=== PATIENT | female | born 1995 | race Caucasian/White ===

== ENCOUNTER 2018-02-06 09:15 | Observation (INO) | payer MEDICAID ==
[2018-02-06] MEDS ORDERED: PREN-96 PO (10:19)
== END 2018-02-06 10:55 | disposition home or self-care (01) | DRG 566 ==
LOC: LDRP 09:15
PROVIDERS: ADMIT Obstetrics & Gynecology; ATTEND Obstetrics & Gynecology
DX: O43.113 Circumvallate placenta, third trimester (principal); O36.5930 Maternal care for other known or suspected poor fetal growth, third trimester, not applicable or unspecified; Z3A.38 38 weeks gestation of pregnancy
CPT/HCPCS: 59025; 76805; 76818; 81002; G0378

== ENCOUNTER 2018-02-13 08:55 | Observation (INO) | payer MEDICAID ==
[~2018-02-13 08:55] MED LIST: PREN-96 PO
== END 2018-02-13 12:15 | disposition home or self-care (01) | DRG 566 ==
LOC: LDRP 08:55
PROVIDERS: ADMIT Specialist; ATTEND Specialist
DX: O43.113 Circumvallate placenta, third trimester (principal); O10.913 Unspecified pre-existing hypertension complicating pregnancy, third trimester; Z3A.39 39 weeks gestation of pregnancy
CPT/HCPCS: 59025; 76818; 81002; G0378

== ENCOUNTER 2018-02-14 14:17 | Observation (INO) | payer MEDICAID | END 2018-02-14 15:25 | disposition home or self-care (01) | DRG 566 | LOC: LDRP 14:17 | PROVIDERS: ADMIT Specialist; ATTEND Specialist | DX: O43.113 Circumvallate placenta, third trimester (principal); Z3A.39 39 weeks gestation of pregnancy | CPT/HCPCS: 59025; 76818; 81002; G0378 ==

== ENCOUNTER 2018-02-16 13:50 | Observation (INO) | payer MEDICAID | END 2018-02-16 14:50 | disposition home or self-care (01) | DRG 566 | LOC: LDRP 13:50 | PROVIDERS: ADMIT Specialist; ATTEND Specialist | DX: O62.9 Abnormality of forces of labor, unspecified (principal); Z3A.39 39 weeks gestation of pregnancy | CPT/HCPCS: 59025; 76815; 81002; G0378 ==

== ENCOUNTER 2018-02-18 10:51 | Observation (INO) | payer MEDICAID | END 2018-02-18 11:55 | disposition home or self-care (01) | DRG 566 | LOC: LDRP 10:51 | PROVIDERS: ADMIT Specialist; ATTEND Specialist | DX: O43.113 Circumvallate placenta, third trimester (principal); O48.0 Post-term pregnancy; O62.9 Abnormality of forces of labor, unspecified; Z3A.40 40 weeks gestation of pregnancy | CPT/HCPCS: 59025; 76818; 81002; G0378 ==

== ENCOUNTER 2018-07-29 23:31 | Emergency (ER) | payer MEDICAID ==
[2018-07-30 07:25] VITALS: BP 118/72
== END 2018-07-30 08:49 | disposition home or self-care (01) ==
LOC: ER 23:35
DX: S93.402A Sprain of unspecified ligament of left ankle, initial encounter (principal); S39.012A Strain of muscle, fascia and tendon of lower back, initial encounter; S50.01XA Contusion of right elbow, initial encounter; M62.838 Other muscle spasm; V43.52XA Car driver injured in collision with other type car in traffic accident, initial encounter; Y93.89 Activity, other specified; Y92.488 Other paved roadways as the place of occurrence of the external cause; Y99.8 Other external cause status
CPT/HCPCS: 70450; 72110; 72125; 73070; 73600

== ENCOUNTER 2022-06-19 10:23 | Emergency (ER) | payer BC, MEDICAID ==
[~2022-06-19] VITALS: Ht 167.6 cm; Wt 79.5 kg
[2022-06-19 10:46] LABS: Basophils # (auto) 0 10 ^3/uL (0-0.2); Basophils % (auto) 0.2 % (0.0-2.0); Eosinophils # (auto) 0.1 10 ^3/uL (0-0.8); Eosinophils % (auto) 0.8 % (0.0-7.0); Hematocrit 44.8 % (36.0-46.0); Hemoglobin 15.1 g/dL (12.2-16.2); Lymphocytes # (auto) 1.2 10 ^3/uL (0.4-5.4); Lymphocytes % (auto) 11.7 % (10.0-50.0); Mean Corpuscular Hemoglobin 31.3 pg (28.0-32.0); Mean Corpuscular Hgb Conc. 33.7 g/dL (32.0-36.0); Mean Corpuscular Volume 92.7 fL (80.0-100.0); Monocytes # (auto) 0.7 10 ^3/uL (0-1.3); Monocytes % (auto) 6.5 % (0.0-12.0); Neutrophils # (auto) 8.5 10 ^3/uL (1.6-8.6); Neutrophils % (auto) 80.8 % (37.0-80.0); Nucleated Red Blood Cells % 0.1 %; Red Blood Cells 4.83 10^6/uL (4.0-5.20); Red Cell Distribution Width 14.5 % (11.8-14.3); White Blood Cell 10.5 10^3/uL (4.4-10.8)
[2022-06-19 11:10] LABS: Albumin 4.3 g/dL (3.4-5.0); Calcium 9.3 mg/dL (8.5-10.1); Magnesium 2.5 mg/dL (1.6-2.6); Potassium 4.1 mmol/L (3.5-5.1)
[2022-06-19 11:13] LABS: Bilirubin, Total 0.7 mg/dL (0.2-1.0); Total Protein 7.9 g/dL (6.4-8.2)
[2022-06-19 12:33] LABS: Urine Bacteria FEW /hpf (None Seen); Urine Blood 3+ /uL (Negative); Urine Mucus FEW (None Seen); Urine Specific Gravity 1.017 (1.001-1.035); Urine WBC 3 /hpf (0 - 5)
[2022-06-19] MEDS ORDERED: cloNIDine HCL 0.1 MG TAB PO ONE (14:00)
[2022-06-19] MEDS ORDERED: LORazepam 0.5 MG TAB PO ONE (14:30)
[2022-06-19 14:48] VITALS: BP 136/91
== END 2022-06-19 14:51 | disposition home or self-care (01) ==
LOC: ER 10:23
DX: R07.89 Other chest pain (principal); R10.2 Pelvic and perineal pain
CPT/HCPCS: 36415; 71045; 80053; 81001; 83735; 83880; 84443; 84484; 84702; 85025; 85379; 93005

== ENCOUNTER 2023-03-07 10:01 | Observation (INO) | payer BC, MEDICAID ==
[~2023-03-07] VITALS: Ht 167.6 cm; Wt 82.4 kg
[2023-03-07 10:10] VITALS: BP 122/71; PULSE 92; RESP 16; O2SAT 97
[2023-03-07 11:38] LABS: Urine Bacteria NONE SEEN /hpf (None Seen); Urine Blood 2+ /uL (Negative); Urine Clarity Clear (Clear); Urine Color Yellow (Yellow); Urine Mucus FEW (None Seen); Urine Protein, UAD TRACE (Negative); Urine Specific Gravity 1.022 (1.001-1.035); Urine Urobilinogen Normal (Negative); Urine WBC 5 /hpf (0 - 5)
== END 2023-03-07 12:59 | disposition home or self-care (01) ==
LOC: ER 10:01 → LDRP 10:21 → ER 10:28 → LDRP 10:28 → UNDOADMOB 10:35 → UNDODISOB 12:59
PROVIDERS: ADMIT Obstetrics & Gynecology; ATTEND Obstetrics & Gynecology
DX: O46.92 Antepartum hemorrhage, unspecified, second trimester (principal); Z3A.22 22 weeks gestation of pregnancy
CPT/HCPCS: 59025; 76805; 81001; 81002; 94760; 99284; G0378

== ENCOUNTER 2023-07-09 04:42 | Observation (INO) | payer BC, MEDICAID | END 2023-07-09 10:59 | disposition home or self-care (01) | LOC: LDRP 08:00 | PROVIDERS: ADMIT Obstetrics & Gynecology; ATTEND Obstetrics & Gynecology | DX: O48.0 Post-term pregnancy (principal); O60.03 Preterm labor without delivery, third trimester; Z3A.40 40 weeks gestation of pregnancy | CPT/HCPCS: 59025; 76818; 81002; G0378 ==

== ENCOUNTER 2023-07-11 08:25 | Inpatient (IN) | payer BC, MEDICAID ==
[~2023-07-11] VITALS: Ht 167.6 cm; Wt 89.4 kg
[2023-07-11] MEDS ORDERED: BUTORPHANOL TARTRATE 2 MG/1 ML VIAL IV PRN ×2 (14:30)
[2023-07-11] MEDS ORDERED: LACT. RINGERS/OXYTOCIN 20UNITS 1,000 ML IV SCH (14:30)
[2023-07-11] MEDS ORDERED: TERBUTALINE SULFATE 1 MG/ML 1ML VIAL SC PRN (14:30)
[2023-07-11] MEDS ORDERED: LIDOCAINE 2%HCL (LOCAL ANESTH.) INJ 20ML MDV IJ PRN (14:30)
[2023-07-11] MEDS ORDERED: LACT. RINGERS/OXYTOCIN 20UNITS 500 ML IV ONE (15:00)
[2023-07-11 15:52] LABS: Basophils # (auto) 0 10 ^3/uL (0-0.2); Basophils % (auto) 0.2 % (0.0-2.0); Eosinophils # (auto) 0 10 ^3/uL (0-0.8); Eosinophils % (auto) 0.4 % (0.0-7.0); Hematocrit 33.7 % (36.0-46.0); Hemoglobin 11.5 g/dL (12.2-16.2); Lymphocytes # (auto) 1.1 10 ^3/uL (0.4-5.4); Lymphocytes % (auto) 15.1 % (10.0-50.0); Mean Corpuscular Hemoglobin 31.2 pg (28.0-32.0); Mean Corpuscular Volume 91.8 fL (80.0-100.0); Monocytes # (auto) 0.5 10 ^3/uL (0-1.3); Monocytes % (auto) 7.3 % (0.0-12.0); Neutrophils # (auto) 5.4 10 ^3/uL (1.6-8.6); Red Blood Cells 3.67 10^6/uL (4.0-5.20); Red Cell Distribution Width 13.7 % (11.8-14.3); White Blood Cell 7.1 10^3/uL (4.4-10.8)
[2023-07-11 16:10] LABS: Alanine Aminotransferase 16 U/L (7-40); Albumin 3.4 g/dL (3.2-4.8); Alkaline Phosphatase 201 U/L (46-116); Anion Gap 8 (5-15); Aspartate Aminotransferase 15 U/L (13-40); BUN/Creatinine Ratio 10.3 (10.0-20.0); Blood Urea Nitrogen 6 mg/dL (9-23); Calcium 9.4 mg/dL (8.7-10.4); Carbon Dioxide 21 mmol/L (20-30); Chloride 106 mmol/L (98-107); Glucose 77 mg/dL (74-106); INR 0.97 (0.9-1.15); Partial Thromboplastin Time 26.2 SEC (24.5-34.5); Potassium 4.1 mmol/L (3.5-5.1); Prothrombin Time 10.3 sec (9.3-11.8); Sodium 135 mmol/L (136-145)
[2023-07-11 16:11] LABS: Bilirubin, Total 0.4 mg/dL (0.2-1.0); Total Protein 5.9 g/dL (5.7-8.2)
[2023-07-11] MEDS: PENICILLIN G POT 5MIL/D5 50ML 50 ML IV ONE (16:58)
[2023-07-11] MEDS: LACTATED RINGER'S 1,000 ML IV SCH (17:02)
[2023-07-11] MEDS: LACT. RINGERS/OXYTOCIN 20UNITS 500 ML IV ONE (18:45)
[2023-07-11 19:03] LABS: Urine Bacteria None Seen /hpf (None Seen)
[2023-07-11] MEDS: PENICILLIN G POTASSIUM 2,500,000 UNITS in D5W 5% 50 ML IV SCH (19:30)
[2023-07-11 19:35] LABS: Urine Blood 3+ /uL (Negative); Urine Clarity Turbid (Clear); Urine Color Colorless (Yellow); Urine Protein, UAD Negative (Negative); Urine Urobilinogen Normal (Negative); Urine WBC 14 /hpf (0 - 5); Urine pH 6.5 (5.0-9.0)
[2023-07-11 19:37] LABS: Amphetamine Screen, Urine Neg (NEGATIVE); Barbiturate Scree,Urine Neg (NEGATIVE); Benzodiazephine Screen, Urine Neg (NEGATIVE); Cocaine Screen, Urine Neg (NEGATIVE); Opiate Scree,Urine Neg (NEGATIVE)
[2023-07-11 19:38] LABS: Cannabinoid Screen, Urine Neg (NEGATIVE); Phencyclidine Screen, Urine Neg (NEGATIVE)
[2023-07-11] MEDS: ePHEDrine SULFATE 50 MG/ML AMP IV ONE (21:15)
[2023-07-11] MEDS: DERMOPLAST 60ML BOTTLE TOP PRN (21:36)
[2023-07-11] MEDS: PHISODERM TOP SOLN 240ML BTL TOP PRN (21:36)
[2023-07-11] MEDS: WITCH HAZEL-GLYCERIN PAD TOP PRN (21:36)
[2023-07-12] MEDS ORDERED: miSOPROStol 100 mcg TAB PR PRN (02:00)
[2023-07-12] MEDS: TRANEXAMIC ACID 1,000 MG in SODIUM CHL 0.9% 100 ML IV ONE (02:00)
[2023-07-12] MEDS ORDERED: miSOPROStol 100 mcg TAB SL PRN (02:00)
[2023-07-12] MEDS ORDERED: METHYLERGONOVINE MALEATE 0.2 MG/ML AMP IM PRN (02:00)
[2023-07-12] MEDS ORDERED: CARBOPROST TROMETHAMINE 250 MCG/1ML VIAL IM PRN (02:00)
[2023-07-12] MEDS: LACT. RINGERS/OXYTOCIN 20UNITS 1,000 ML IV SCH (03:30)
[2023-07-12] MEDS: ONDANSETRON HCL 4 MG/2 ML VIAL ONE (05:26)
[2023-07-12] MEDS: LACT. RINGERS/OXYTOCIN 20UNITS 500 ML IV ONE ×2 (05:52→05:55)
[2023-07-12] MEDS: ROPIVACAINE HCL 200 ML ONE (05:56)
[2023-07-12 07:07] LABS: RPR Non Reactive (Non Reactive)
[2023-07-12] MEDS ORDERED: DIPHENOXYLATE W/ATROPINE 2.5 MG TAB PO SCH (10:00)
[2023-07-12] MEDS ORDERED: ONDANSETRON ODT 4 MG TAB PO PRN (10:30)
[2023-07-12] MEDS ORDERED: ACETAMINOPHEN 325 MG TAB PO PRN (10:30)
[2023-07-12 11:30] VITALS: BP 123/74; PULSE 74; RESP 18; TEMP 97.9; O2SAT 98
[2023-07-12] MEDS: IBUPROFEN 600 MG TAB PO PRN (11:57)
[2023-07-12 15:30] VITALS: BP 134/75; PULSE 76; RESP 18; TEMP 98.2; O2SAT 98
[2023-07-12 18:30] VITALS: BP 127/77; PULSE 82; RESP 18; TEMP 97.9; O2SAT 95
[2023-07-12] MEDS ORDERED: IBU600T PO (21:09)
[2023-07-12] MEDS ORDERED: DOCU-94 PO (21:09)
[2023-07-12] MEDS: DOCUSATE SOD 100 MG CAP PO ONE (22:00)
[2023-07-12 23:06] VITALS: BP 120/77; PULSE 78; RESP 18; TEMP 97.7; O2SAT 96
[2023-07-13 03:00] VITALS: BP 128/77; PULSE 58; RESP 14; TEMP 97.9; O2SAT 95
[2023-07-13 05:14] LABS: Basophils # (auto) 0 10 ^3/uL (0-0.2); Basophils % (auto) 0.3 % (0.0-2.0); Eosinophils # (auto) 0.1 10 ^3/uL (0-0.8); Eosinophils % (auto) 0.7 % (0.0-7.0); Hematocrit 32.7 % (36.0-46.0); Lymphocytes # (auto) 1.8 10 ^3/uL (0.4-5.4); Lymphocytes % (auto) 16.9 % (10.0-50.0); Mean Corpuscular Hemoglobin 31.3 pg (28.0-32.0); Mean Corpuscular Hgb Conc. 33.5 g/dL (32.0-36.0); Mean Corpuscular Volume 93.6 fL (80.0-100.0); Monocytes # (auto) 0.8 10 ^3/uL (0-1.3); Monocytes % (auto) 7.2 % (0.0-12.0); Neutrophils # (auto) 7.9 10 ^3/uL (1.6-8.6); Neutrophils % (auto) 74.9 % (37.0-80.0); Nucleated Red Blood Cells % 0.1 %; Red Blood Cells 3.49 10^6/uL (4.0-5.20); Red Cell Distribution Width 13.9 % (11.8-14.3); White Blood Cell 10.6 10^3/uL (4.4-10.8)
[2023-07-13 07:00] VITALS: BP 135/88; PULSE 72; RESP 16; TEMP 97.7; O2SAT 96
[2023-07-13 18:06] LABS: Treponema pallidum Ab (FTA-Ab) Non Reactive (Non Reactive)
== END 2023-07-13 12:00 | disposition home or self-care (01) | DRG 807 ==
LOC: UNDOADMOB 13:05 → LDRP 13:05 → OBSVTOIN 14:33 → LDRP 18:30
PROVIDERS: ADMIT Obstetrics & Gynecology; ATTEND Obstetrics & Gynecology
PROC: 10E0XZZ Delivery of Products of Conception, External Approach (ICD-10-PCS; principal; 2023-07-12)
PROC: 0W8NXZZ Division of Female Perineum, External Approach (ICD-10-PCS; 2023-07-12)
PROC: 3E0R3BZ Introduction of Anesthetic Agent into Spinal Canal, Percutaneous Approach (ICD-10-PCS; 2023-07-12)
PROC: 00HU33Z Insertion of Infusion Device into Spinal Canal, Percutaneous Approach (ICD-10-PCS; 2023-07-12)
DX: O48.0 Post-term pregnancy (principal); Z37.0 Single live birth; O99.824 Streptococcus B carrier state complicating childbirth; Z3A.40 40 weeks gestation of pregnancy
CPT/HCPCS: 36415; 59025; 59409; 62282; 76818; 80053; 80307; 81001; 81002; 85025; 85610; 85730; 86592; 86850; 86900; 86901; 94760; 96360; 96361; 96365; 96366; 96374; G0378; J2405; J2540; J2590; J7060

== ENCOUNTER 2024-12-01 08:59 | Observation (INO) | payer BC, MEDICAID ==
[~2024-12-01] VITALS: Ht 170.2 cm; Wt 86.2 kg
[~2024-12-01 08:59] MED LIST changes: +DOCU-94 PO; +IBU600T PO
[2024-12-01] MEDS: BETAMETHASONE ACET (30mg/5ml) 5ml Vial 6mg/ml IM ONE (11:06)
[2024-12-01] MEDS: LACTATED RINGER'S 1,000 ML IV ONE (11:07)
--- NOTE | 2024-12-01 12:18 | DVH ---
EXAM: US OB ULTRASOUND COMP GTR 14 WKS HISTORY: Vaginal bleeding COMPARISON: US OB ULTRASOUND COMP GTR 14 WKS on DOS: 03/07/23 TECHNIQUE: Transabdominal and endovaginal real time romero scale, color, and doppler evaluation. Perman ent images are maintained in the patient record. FINDINGS: GA by previous US/LMP: 35 weeks, 6 days ROSMERY by previous US/LMP: 12/30/24 US GESTATIONAL AGE: 37 weeks, 2 days US ROSMERY: 12/20/24 ESTIMATED WEIGHT: 2898 g. 6 lb, 6 oz HEART RATE: 125 bpm BPD: 9.72 cm, 39 weeks 5 days, 97% HC: 33.9 cm, 39 weeks 0 days, 88.3% AC: 32 cm, 35 weeks 6 days, 60.9% FL: 6.73 cm, 34 weeks 4days, 15.9% HC/AC: 1.06 ANATOMY: Normal head, 4 chamber heart, face, spine, stomach, kidneys, cord insertion, bladder, extrem ities POSITION: Cephalic PLACENTA: Anterior GRADE: 2 JANINE: 14.4 cm IMPRESSION: 1. Single viable gestation with normal cardiac heart rate.
--- NOTE | 2024-12-02 07:34 | DVHDS2 ---
Physician Discharge Progress N Final Diagnosis: IUP AT 35WKS PTL Operations or Procedures: Operations or Procedures NST REACTIVE REVIWED,SONO Condition on Discharge: Good Disposition: Home Discharge Instructions: Diet: Regular Activity: No Restrictions, As Tolerated Medications: REFUSES ALL TOCOLYTIC AND PROCARDIA TO GO HOME ON Follow Up Care: Specialist: 2D Discharge Statement: "Patient was advised to return to the ER or call 911 if any headaches, dizziness, shortness of breath, chest pain, abdominal pain, bleeding, fevers, or worsening of medical condition. Patient was counseled about treatment plan, medications, possible side effects, patientverbalized understanding. All questions were answered to the best of my ability. This discharge took greater then 30 minutes in planning, reviewing documentation, counseling the patient, and discussing with other team members." Visit Coding OBGYN Date of Service: Dec 01, 2024 Billing Provider: MARISSA JUDGE DO ON CALL PHARMACY TECHNICIAN Common Visit Codes: [id number] INP/OBS CARE (HIGH) ON CALL PHARMACY TECHNICIAN Procedure Codes: [id number] NON-STRESS TEST MARISSA JUDGE DO Dec 02, 2024 07:34
== END 2024-12-01 11:37 | disposition home or self-care (01) ==
LOC: LDRP 08:59
PROVIDERS: ADMIT Obstetrics & Gynecology; ATTEND Obstetrics & Gynecology
DX: O60.03 Preterm labor without delivery, third trimester (principal); Z3A.35 35 weeks gestation of pregnancy; Z79.899 Other long term (current) drug therapy; Z98.890 Other specified postprocedural states
CPT/HCPCS: 59025; 76805; 81002; 96360; 96361; 96372; G0378; J0702

== ENCOUNTER 2024-12-02 10:59 | Observation (INO) | payer BC, MEDICAID ==
[2024-12-02] MEDS: BETAMETHASONE ACET (30mg/5ml) 5ml Vial 6mg/ml IM ONE (12:24)
[2024-12-02 13:12] LABS: Urine Protein, UAD Negative (Negative)
--- NOTE | 2024-12-03 12:28 | DVHDS2 ---
Physician Discharge Progress N Final Diagnosis: ptl 36wks Operations or Procedures: Operations or Procedures nst reactive reviwed,sono Condition on Discharge: Good Disposition: Home Discharge Instructions: Diet: Regular Activity: No Restrictions, As Tolerated Medications: na Follow Up Care: Specialist: 1d Discharge Statement: "Patient was advised to return to the ER or call 911 if any headaches, dizziness, shortness of breath, chest pain, abdominal pain, bleeding, fevers, or worsening of medical condition. Patient was counseled about treatment plan, medications, possible side effects, patientverbalized understanding. All questions were answered to the best of my ability. This discharge took greater then 30 minutes in planning, reviewing documentat ion, counseling the patient, and discussing with other team members." Visit Coding OBGYN Date of Service: Dec 02, 2024 Billing Provider: MARISSA JUDGE DO HALAL BUTCHER Common Visit Codes: [id number] OBS CARE (HIGH) HALAL BUTCHER Procedure Codes: 75251-03- NON-STRESS TEST MARISSA JUDGE DO Dec 03, 2024 12:28
[2024-12-05 03:08] LABS: Chlamydia Trachomatis, NAA Negative (Negative); Neisseria gonorrhoeae, NAA Negative (Negative)
== END 2024-12-02 12:48 | disposition home or self-care (01) ==
LOC: LDRP 11:10
PROVIDERS: ADMIT Obstetrics & Gynecology; ATTEND Obstetrics & Gynecology
DX: O60.03 Preterm labor without delivery, third trimester (principal); R53.1 Weakness; Z3A.36 36 weeks gestation of pregnancy; Z98.890 Other specified postprocedural states; Z79.899 Other long term (current) drug therapy
CPT/HCPCS: 36415; 59025; 81001; 81002; 86703; 86780; 87491; 87591; 94760; 96372; G0378

== ENCOUNTER 2024-12-15 15:19 | Inpatient (IN) | payer BC, MEDICAID ==
[~2024-12-15] VITALS: Ht 167.6 cm; Wt 86.2 kg
[2024-12-15] MEDS ORDERED: DERMOPLAST 60ML BOTTLE TOP PRN (16:00)
[2024-12-15] MEDS ORDERED: PENICILLIN G POT 5MIL/D5 50ML 50 ML IV ONE (16:00)
[2024-12-15] MEDS ORDERED: NALBUPHINE HCL 10 MG/1ml INJECTION IV PRN (16:00)
[2024-12-15 16:41] LABS: Hematocrit 34.1 % (36.0-46.0); Hemoglobin 11.7 g/dL (12.2-16.2); Mean Corpuscular Hemoglobin 30.3 pg (28.0-32.0); Mean Corpuscular Volume 88.7 fL (80.0-100.0); Nucleated Red Blood Cells % 0.1 %
[2024-12-15 16:58] LABS: Alanine Aminotransferase 21 U/L (7-40); Albumin 3.6 g/dL (3.2-4.8); Anion Gap 7 (5-15); BUN/Creatinine Ratio 9.0 (10.0-20.0); Bilirubin, Total 0.4 mg/dL (0.2-1.0); Calcium 8.8 mg/dL (8.7-10.4); Carbon Dioxide 21 mmol/L (20-31); Glucose 89 mg/dL (74-106); INR 0.96 (0.9-1.15); Partial Thromboplastin Time 24.8 SEC (24.5-34.5); Potassium 4.0 mmol/L (3.5-5.1); Prothrombin Time 10.2 sec (9.3-11.8); Sodium 140 mmol/L (136-145); Total Protein 6.2 g/dL (5.7-8.2)
[2024-12-15 17:07] LABS: Alkaline Phosphatase 288 U/L (46-116); Blood Urea Nitrogen 7 mg/dL (9-23); Chloride 112 mmol/L (98-107)
[2024-12-15 17:10] LABS: Urine Protein, UAD 1+ (Negative)
[2024-12-15 17:13] LABS: Amphetamine Screen, Urine Neg (NEGATIVE); Barbiturate Scree,Urine Neg (NEGATIVE); Benzodiazephine Screen, Urine Neg (NEGATIVE); Cannabinoid Screen, Urine Neg (NEGATIVE); Cocaine Screen, Urine Neg (NEGATIVE); Opiate Scree,Urine Neg (NEGATIVE); Phencyclidine Screen, Urine Neg (NEGATIVE)
[2024-12-15 17:23] LABS: Vaginal Bacteria Few; Vaginal Clue Cells None Seen; Vaginal Epithelial Cells Few; Vaginal Trichomonas Not Present
[2024-12-15] MEDS ORDERED: LACT. RINGERS/OXYTOCIN 20UNITS 500 ML IV ONE ×2 (18:00→18:30)
--- NOTE | 2024-12-15 18:06 | DVHHP ---
ADMIT DATE: 12/15/2024 CHIEF COMPLAINT: Spontaneous rupture of membranes. HISTORY OF PRESENT ILLNESS: The patient is a 29-year-old 4, para 2 with EDC on 12/30. The patient has gestational age of 37 weeks admitted for spontaneous rupture of membranes. The patient was noted to be 4 cm, 60%, -2, clear fluid. PAST MEDICAL HISTORY: None. PAST SURGICAL HISTORY: None. SOCIAL HISTORY: None. FAMILY HISTORY: None. OBSTETRIC AND GYNECOLOGIC HISTORY: Two normal vaginal deliveries. ALLERGIES: No known drug allergies. REVIEW OF SYSTEMS: Consistent with HPI. PHYSICAL EXAMINATION: VITAL SIGNS: Stable, afebrile. HEENT: Within normal limits. CARDIOVASCULAR: Regular rate and rhythm. LUNGS: Clear to auscultation. BREASTS: Symmetrical, no masses. ABDOMEN: Gravid. Positive heart. PELVIC: 4 cm, 805, -2. Clear fluid. EXTREMITIES: No clubbing, cyanosis or edema. IMPRESSION: Intrauterine at 37 weeks with spontaneous rupture of membranes. PLAN: Start Pitocin. The patient desires to have epidurals. Informed consent obtained. DO CANDACE Mccormack/CARMEN TID: [id number] RECEIPT: [id number]
[2024-12-15] MEDS: LACT. RINGERS/OXYTOCIN 20UNITS 1,000 ML IV SCH (19:19)
[2024-12-15] MEDS: PHISODERM TOP SOLN 240ML BTL TOP PRN (19:20)
[2024-12-15] MEDS: WITCH HAZEL-GLYCERIN PAD TOP PRN (19:21)
[2024-12-15] MEDS: DERMOPLAST 60ML BOTTLE TOP PRN (19:40)
[2024-12-15] MEDS ORDERED: ONDANSETRON HCL 4 MG/2 ML VIAL IV PRN (19:45)
[2024-12-15] MEDS ORDERED: PENICILLIN G POTASSIUM 2,500,000 UNITS in D5W 5% 50 ML IV SCH (20:00)
[2024-12-15] MEDS: ceFAZolin 2 GM/D5W50ml 50 ML IV ONE (20:02)
[2024-12-16] VITALS (14 sets, daily range): BP systolic 99–136; BP diastolic 58–80; PULSE 71–88; RESP 16–18; TEMP 97.8–98.5; O2SAT 95–98
[2024-12-16] MEDS: MAGNESIUM SULFATE 100 ML IV ONE ×2 (00:41→01:13)
[2024-12-16] MEDS ORDERED: NALOXONE HCL 0.4 MG/ML VIAL IV ONE (01:00)
[2024-12-16] MEDS ORDERED: LACTATED RINGER'S 500 ML IV ONE (01:00)
[2024-12-16] MEDS ORDERED: LIDOCAINE HCL 2 %PF INJ 10ML AMP IJ ONE (01:00)
[2024-12-16] MEDS ORDERED: ROPIVACAINE HCL 0 ML ONE (01:04)
--- NOTE | 2024-12-16 01:10 | DVHPN2 ---
CNM Labor Progress Note Date and Time Seen Date Seen: Dec 16, 2024 Time Seen: 00:40 Subjective Patient reports: Feels worse Subjective Comment 12/16/2024 @ 0045 Subjective 29 y/o (2,0,1,0) @ 38w0d EDC 12/30/2024 LMP 03/25/2024 Spontaneous rupture of membranes 12/15/2024 @ 1100 Currently elevated blood pressures 162/102 172/105 Given Hydralazine 0.5 mg X1 dose Magnesium 4 gm loading dose Requesting epidural and in pain with contractions Anesthesiologist requested to bedside 100 mcg Fentanyl X 1 dose given for pain management until epidural placed Current SVE /0 Reporting pain 11/[address] Pruett labs Blood Type O positive GBS : Negative RPR: Non Reactive Rubella Immune Normal Course Past History OB: G#1 G#2 G#3 Neurophysiologist PMH : Denies PSH: Denies Medications: PNV, Social Hist: Requested STI panel , reported FOB is having extra relationships Abdomen: Gravid non- tender, Cephalic presentation by Yannick maneuvers EFW SVE Monitoring Method Monitoring Method: External Heart Rate Heart Rate Baseline: 145 Heart Rate Variability: Moderate Presence of FHR Accelerations: Yes Presence of FHR Decelerations: No Are all 5 Components of the FH: Yes Contractions Contractions Frequency: Other Duration of Contraction: 60 Contractions Intensity: Moderate Contractions Resting Tone: Relaxed Membranes Membranes: Ruptured Amniotic Fluid Color: Clear Vaginal Exam Vag Exam Deferred: Yes Vaginal Exam Dilation: 5 Vaginal Exam Effacement: 90 Vaginal Exam Station: 0 Vaginal Exam Presentation: VTX Vaginal Exam Show: Small Medications Medications - Pitocin: Yes Medication - Epidural: Yes Medication - Other Magnesium 4 gm loading dose Magnesium 2 gm maintenance Fentanyl 100 mcg IVP Lab Results Lab Results Current Medications Medications (Trade) Dose Ordered Sig/Sabas Start Time Stop Time Status Last Admin Dose Admin Lactated Ringer's 1,000 ml @ 125 mls/hr Q8H 12/15/24 16:00 Nalbuphine HCl (Nubain) 10 mg Q4HP PRN 12/15/24 16:00 Penicillin G Potassium 50 ml @ 100 mls/hr ONCE ONCE 12/15/24 16:00 12/15/24 16:23 DC Penicillin G Potassium [id number] units/Dextrose 50 ml @ 100 mls/hr Q4H 12/15/24 20:00 12/15/24 16:23 DC Makayla Ward (Tucks) 1 pad PRN PRN 12/15/24 16:00 12/15/24 19:21 1 PAD Sodium Lauryl Sulfate (Phisoderm) 240 ml PRN PRN 12/15/24 16:00 12/15/24 19:20 240 ML Benzocaine (Dermoplast) 1 applic PRN PRN 12/15/24 16:00 12/15/24 16:23 DC Lidocaine HCl (Xylocaine) 20 ml ONCE PRN 12/15/24 16:00 Oxytocin 500 ml @ 999 mls/hr Q31M ONCE 12/15/24 16:15 12/15/24 16:45 DC Oxytocin 500 ml @ 125 mls/hr Q4H ONCE 12/15/24 16:45 12/15/24 20:44 DC Oxytocin 1,000 ml @ 6 ml/hr Q24H 12/15/24 18:00 12/15/24 19:19 6 ML/HR Oxytocin 500 ml @ 999 mls/hr Q31M ONCE 12/15/24 18:00 12/15/24 18:30 DC Oxytocin 500 ml @ 125 mls/hr Q4H ONCE 12/15/24 18:30 12/15/24 18:47 DC Cefazolin Sodium/ Dextrose 50 ml @ 50 mls/hr ONCE ONCE 12/15/24 20:00 12/15/24 20:59 DC 12/15/24 20:02 50 MLS/HR Cefazolin Sodium 50 ml @ 100 mls/hr Q8HR 12/16/24 04:00 Benzocaine (Dermoplast) 1 applic PRN PRN 12/15/24 19:15 12/15/24 19:40 1 APPLIC Ondansetron HCl (Zofran) 4 mg Q4HPRN PRN 12/15/24 19:45 Laboratory Tests Test 12/15/24 16:13 12/15/24 15:35 12/15/24 15:30 Range/Units White Blood Count 6.9 4.4-10.8 10^3/uL Red Blood Count 3.85 L 4.0-5.20 10^6/uL Hemoglobin 11.7 L 12.2-16.2 g/dL Hematocrit 34.1 L 36.0-46.0 % Mean Corpuscular Volume 88.7 80.0-100.0 fL Mean Corpuscular Hemoglobin 30.3 28.0-32.0 pg Mean Corpuscular Hemoglobin Concent 34.2 32.0-36.0 g/dL Red Cell Distribution Width 14.2 11.8-14.3 % Platelet Count 122 L 140-450 10^3/uL Mean Platelet Volume 11.3 H 6.9-10.8 fL Neutrophils (%) (Auto) 76.6 37.0-80.0 % Lymphocytes (%) (Auto) 16.3 10.0-50.0 % Monocytes (%) (Auto) 6.7 0.0-12.0 % Eosinophils (%) (Auto) 0.1 0.0-7.0 % Basophils (%) (Auto) 0.3 0.0-2.0 % Neutrophils # (Auto) 5.3 1.6-8.6 10 ^3/uL Lymphocytes # (Auto) 1.1 0.4-5.4 10 ^3/uL Monocytes # (Auto) 0.5 0-1.3 10 ^3/uL Eosinophils # (Auto) 0 0-0.8 10 ^3/uL Basophils # (Auto) 0 0-0.2 10 ^3/uL Nucleated Red Blood Cells 0.1 % Prothrombin Time 10.2 9.3-11.8 sec Prothrombin Time INR 0.96 0.9-1.15 Activated Partial Thromboplast Time 24.8 24.5-34.5 SEC Sodium Level 140 136-145 mmol/L Potassium Level 4.0 3.5-5.1 mmol/L Chloride Level 112 H 98-107 mmol/L Carbon Dioxide Level 21 20-31 mmol/L Anion Gap 7 5-15 Blood Urea Nitrogen 7 L 9-23 mg/dL Creatinine 0.78 0.550-1.02 mg/dL Glomerular Filtration Rate Calc 106 >90 mL/min BUN/Creatinine Ratio 9.0 L 10.0-20.0 Serum Glucose 89 74-106 mg/dL Uric Acid 6.1 3.1-7.8 mg/dL Calcium Level 8.8 8.7-10.4 mg/dL Total Bilirubin 0.4 0.2-1.0 mg/dL Aspartate Amino Transferase (AST) 20 13-40 U/L Alanine Aminotransferase (ALT) 21 7-40 U/L Alkaline Phosphatase 288 H 46-116 U/L Total Protein 6.2 5.7-8.2 g/dL Albumin 3.6 3.2-4.8 g/dL Treponema pallidum Antibody Non-reactive Negative Hepatitis C Antibody Negative Negative Vaginal WBC (Wet Prep) Few Vaginal RBC (Wet Prep) Few Vaginal Epithelial Cells (Wet Prep) Few Vaginal Bacteria (Wet Prep) Few Vaginal Trichomonas (Wet Prep) Not present Vaginal Yeast (Wet Prep) None seen Vaginal Clue Cells (Wet Prep) None seen Urine Color Yellow Yellow Urine Clarity Turbid H Clear Urine pH 6.0 5.0-9.0 Urine Specific [place] 1.032 1.001-1.035 Urine Protein 1+ H Negative Urine Ketones 1+ H Negative Urine Blood 1+ H Negative /uL Urine Nitrite Negative Negative Urine Bilirubin Negative Negative Urine Urobilinogen 2 H Negative mg/dL Urine Leukocyte Esterase 2+ Negative /uL Urine RBC 5 0 - 4 /hpf Urine Microscopic WBC 28 H 0-5 /HPF Urine Squamous Epithelial Cells Mod <5 /hpf Urine Bacteria None seen None Seen /hpf Urine Mucus Few None Seen Urine Glucose Normal Normal mg/dL Urine Opiates Screen Neg NEGATIVE Urine Fentanyl Screen Neg NEGATIVE Urine Barbiturates Screen Neg NEGATIVE Urine Phencyclidine Screen Neg NEGATIVE Urine Amphetamines Screen Neg NEGATIVE Urine Benzodiazepines Screen Neg NEGATIVE Urine Cocaine Screen Neg NEGATIVE Urine Cannabinoids Screen Neg NEGATIVE Consulting with Regarding Spoke with Dr Pruett and reported findings Aware hager start patient on magnesium therapy Assessment Assessment ASSESSMENT: (2,0,1,2) 38w0d Start magnesium therapy for elevated pressures Received Hydralazine 0.25 X1 dose for BP 170/105 Epidural for pain Pitocin augmentation Received Ancef 2 gm IVPB X1 dose Plan Plan PLAN: Plan of care discussed with Patient and partner Process, Risks, benefits, of available management options discussed, Patient agrees to magnesium/ fentanyl/ Epidural Informed Consent obtained Consent for possible blood transfusion obtained. All questions answered. Anticipate Plan discussed with: Patient, Other Visit Coding OBGYN Date of Service: Dec 16, 2024 Billing Provider: WINSTON CEDILLO CNM DETACHER Common Visit Codes: [id number] INP/OBS CARE (HIGH) WINSTON CEDILLOov 2024 01:10
[2024-12-16] MEDS: MAGNESIUM SULFATE 40MG/ML 1,000 ML IV SCH (01:16)
--- NOTE | 2024-12-16 02:10 | LDN2 ---
Labor and Delivery Note Date 12/16/24 Age 29 4 Para 3 EDC 12/30/2024 Diagnosis Note- Called to bedside for standby delivery Unable to receive epidural SVE C/C/+3 with noted At 0127 this 29yo now delivered a viable Female w/ APGARS 8/9. DAKOTAH with tight Nuchal x1 with cord reduced before . placed skin to skin on pts chest. Cord clamped and cut after 3 min, pulsation ceased. Cord blood sent. Intact 3-vessel cord placenta Delivered spontaneously, Oscar. Pitocin IV bolus started. Placenta sent to pathology. Patient delivered without anesthesia Fentanyl 100 mcg given IVPB Cervix/vagina inspected (intact) Perineal Intact Vaginal sweep done and 100 ml of clots removed Fundus at U, firm, midline, and light lochia. QBL 400ml. VSS. Count correct x2. Magnesium therapy 12-24 hours for elevated blood pressures. Patient to care and baby to couplet care, both stable. Rectal mucosa and sphincter intact. 800 mcg Misoprostol given rectally Rectal exam performed, WNL, not involved. Placenta inspected intact. Vaginal Delivery: VTX Vacuum Assisted: No Placenta: Spontaneous Sex: Female Nuchal Cord Transected: Yes Amniotic Fluid: Clear Episiotomy: No Extension: No EBL 400 ML Labs Chemistry Test 12/15/24 16:13 Albumin 3.6 g/dL (3.2-4.8) Calcium Level 8.8 mg/dL (8.7-10.4) Total Protein 6.2 g/dL (5.7-8.2) Coagulation Test 12/15/24 16:13 Prothrombin Time 10.2 sec (9.3-11.8) Prothrombin Time INR 0.96 (0.9-1.15) Activated Partial Thromboplast Time 24.8 SEC (24.5-34.5) LFT Test 12/15/24 16:13 Alanine Aminotransferase (ALT) 21 U/L (7-40) Alkaline Phosphatase 288 U/L (46-116) H Aspartate Amino Transferase (AST) 20 U/L (13-40) Total Bilirubin 0.4 mg/dL (0.2-1.0) Complications Elevated Blood Pressures Magnesium Therapy Conditions Stable with infant Visit Coding OBGYN Date of Service: Dec 16, 2024 Billing Provider: WINSTON CEDILLO CNM MEDICAL ASSISTANT Common Visit Codes: [id number] OBS CARE (MOD), [id number] OBS CARE (HIGH) WINSTON CEDILLOMNov 2024 02:10
[2024-12-16] MEDS: LIDOCAINE 2%HCL (LOCAL ANESTH.) INJ 20ML MDV IJ PRN (02:54)
[2024-12-16] MEDS ORDERED: LORazepam 2MG/ML-1ML VIAL IV ONE (03:00)
[2024-12-16] MEDS: fentaNYL CITRATE 100 MCG/2 ML VL IV ONE (03:01)
[2024-12-16] MEDS: LACT. RINGERS/OXYTOCIN 20UNITS 500 ML IV ONE ×2 (03:09→03:11)
[2024-12-16] MEDS: LACTATED RINGER'S 1,000 ML IV SCH (03:14)
[2024-12-16] MEDS ORDERED: IBUPROFEN 600 MG TAB PO PRN (03:15)
[2024-12-16] MEDS ORDERED: ACETAMINOPHEN 325 MG TAB PO PRN (03:15)
[2024-12-16] MEDS ORDERED: ceFAZolin 1GM/50ML 50 ML IV SCH (04:00)
[2024-12-16] MEDS ORDERED: TRANEXAMIC ACID 1,000 mg/10ml INJ VIAL IV ONE (10:56)
[2024-12-16] MEDS: DOCUSATE SOD 100 MG CAP PO SCH (22:38)
[2024-12-17 03:23] VITALS: BP 117/63; PULSE 71; RESP 17; TEMP 98; O2SAT 96
--- NOTE | 2024-12-17 03:42 | DVHDS2 ---
Discharge Summary Discharge Summary Date of Admission: Dec 15, 2024 Date of Discharge: Dec 17, 2024 Discharge Diagnosis: Normal Spontaneous Vaginal Delivery Brief History: P.P Note. Subjective 29 y/o now ppd#2 s/p doing well. Total QBL: 450 ML Center Periurethral laceration with repair Problems: Elevated Blood Pressures in labor Magnesium therapy for elevated blood pressures, Magnesium therapy D/C 12/16/2024 @ 1330 Given Antihypertensive medication in labor Has not had any elevated blood pressures since the one episode Short interval Multigravida Lochia minimal Tolerating regular diet well. Ambulating and voiding well w/o feeling lightheaded or dizzy. Passing flatus but no BM yet. Breast feeding. Contraceptive plan: unknown Desires and requests to be discharged home today Objective Afebrile, VSS Chest: heart and lung sounds normal. Breasts: Nipples intact w/o cracks or soreness Abdomen: normal BS, soft, non-tender, no rebound or guarding, Fundus firm @ Umbilicus -1, lochia minimal Perineum:- no edema, or erythema, Extremities: no edema or tenderness Lochia - minimal Assessment/ Plan labs Blood Type O positive GBS : Negative RPR: Non Reactive Rubella Immune Breast feeding Pain control with oral medications Bowel regimen: Increase fluid intake and fiber in diet, Laxative PRN Physical exam on Discharge Fundus firm @ Umbilicus -1, lochia rubra with scant bleeding Perineum:- no edema, or erythema, Extremities: no edema or tenderness Discharge Disposition: Home Discharge Instructions Discharge plan: May discharge home later today / tomorrow if condition remains stable Daily assessment findings will determine when to discharge Discharge Information / Summary Diet: Routine regular diet rich in fiber, protein, iron and vitamin C with adequate fluid intake. Activity: Unrestricted. Advance as tolerated. Balance activities with rest periods No heavy lifting, pushing or straining. Pelvic rest x 6weeks Follow up with OB Provider in 1 week Medications: Ibuprofen 600mg every 6 hours as needed for pain. Continue Vitamin and iron Follow up with OB Provider in 1 week Instructions: self care instructions given. emergency signs and symptoms including but not limited to pre-eclampsia precautions and signs of i nfection, PPH & of PPD reviewed with patient. Follow up with OB Provider in 1 week Medications Current Medications Medications Dose Ordered Sig/Sabas Route Start Time Stop Time Status Last Admin Dose Admin Makayla Ward 1 pad PRN PRN TOP 12/15/24 16:00 12/16/24 21:20 1 PAD Sodium Lauryl Sulfate 240 ml PRN PRN TOP 12/15/24 16:00 12/15/24 19:20 240 ML Benzocaine 1 applic PRN PRN TOP 12/15/24 19:15 12/16/24 21:20 1 APPLIC Ondansetron HCl 4 mg Q4HPRN PRN IV 12/15/24 19:45 Ibuprofen 600 mg Q6HP PRN PO 12/16/24 03:15 Acetaminophen 650 mg Q4HP PRN PO 12/16/24 03:15 Docusate Sodium 200 mg HS PO 12/16/24 22:00 12/16/24 22:38 200 MG Discharge Care Plan Problem Pain, Knowledge deficit, Risk for infection Goals Pain relieved, Pain controlled Skin remains intact Remain free of infection Instructions Take Rx medications, Notify MD of any issues Visit Coding OBGYN Date of Service: Dec 17, 2024 Billing Provider: WINSTON CEDILLO CNM E BUSINESS PROJECT MANAGER Common Visit Codes: [id number] INP/OBS CARE (MOD) WINSTON CEDILLOMNov 2024 03:42
[2024-12-17 07:30] VITALS: BP 130/86; PULSE 71; RESP 16; TEMP 97.8; O2SAT 98
== END 2024-12-17 11:01 | disposition home or self-care (01) | DRG 807 ==
LOC: OBSVTOIN 15:19 → LDRP 15:19
PROVIDERS: ADMIT Obstetrics & Gynecology; ATTEND Obstetrics & Gynecology
PROC: 10E0XZZ Delivery of Products of Conception, External Approach (ICD-10-PCS; principal; 2024-12-16)
PROC: 0UQMXZZ Repair Vulva, External Approach (ICD-10-PCS; 2024-12-16)
DX: O69.1XX0 Labor and delivery complicated by cord around neck, with compression, not applicable or unspecified (principal); Z37.0 Single live birth; O71.82 Other specified trauma to perineum and vulva; Z3A.38 38 weeks gestation of pregnancy
CPT/HCPCS: 36415; 59025; 59409; 80053; 80307; 81001; 83735; 84550; 85025; 85610; 85730; 86780; 86803; 86850; 86900; 86901; 87210; 94760; 94762; 96360; 96361; 96365; 96366; 96374; 96375; G0378; J2590; J7060

== ENCOUNTER 2024-12-30 15:37 | Inpatient (IN) | payer BC, MEDICAID ==
[~2024-12-30] VITALS: Ht 167.6 cm; Wt 82.0 kg
[2024-12-30 15:50] VITALS: PULSE 93; RESP 21; O2SAT 96
[2024-12-30 16:47] LABS: Hematocrit 31.4 % (36.0-46.0); Hemoglobin 10.1 g/dL (12.2-16.2); Mean Corpuscular Hemoglobin 29.0 pg (28.0-32.0); Mean Corpuscular Volume 90.4 fL (80.0-100.0); Nucleated Red Blood Cells % 0.0 %
[2024-12-30 16:59] LABS: Alanine Aminotransferase 26 U/L (7-40); Albumin 3.4 g/dL (3.2-4.8); Anion Gap 13 (5-15); BUN/Creatinine Ratio 10.7 (10.0-20.0); Carbon Dioxide 20 mmol/L (20-31); Potassium 3.5 mmol/L (3.5-5.1); Sodium 145 mmol/L (136-145); Total Protein 5.7 g/dL (5.7-8.2)
[2024-12-30 17:00] LABS: Bilirubin, Total 0.5 mg/dL (0.2-1.0)
[2024-12-30 17:18] LABS: Blood Urea Nitrogen 9 mg/dL (9-23); Chloride 112 mmol/L (98-107); Glucose 145 mg/dL (74-106)
[2024-12-30 17:19] LABS: Alkaline Phosphatase 145 U/L (46-116); Calcium 8.0 mg/dL (8.7-10.4)
[2024-12-30] MEDS: SODIUM CHLORIDE 0.9% 500 ML IV ONE (18:15)
--- NOTE | 2024-12-30 18:29 | ED.PDOC ---
History of Present Illness HPI Comments 29-year-old female who comes in with chief complaint of vaginal bleeding since approximately 1:00 a.m. this afternoon. The patient states that she is two weeks . The patient has no vomiting but did have some nausea. The patient is also having some abdominal cramping which she rates as a 4/10. The patient's blood pressure when I evaluated her was 67/34. The patient was very pale. The patient states that she is still having a significant amount of bleeding and feels somewhat weak. Chief Complaint: Vaginal Bleed Time Seen by MD: 18:02 Primary Care Provider: ALFIE Reviewed Notes: Nurses Notes, Livestock Nutritionist Notes, Medications, Allergies (No allergies to medications) Allergies: Coded Allergies: NO KNOWN ALLERGIES (Unverified , 05/18/14) Home Meds Active Scripts Ondansetron Odt 4MG Tab (ZOFRAN PO) 4 Mg Tb, 4 MG PO Q4HP PRN for 6 Days, #30 TAB ODT TAB-DISSOLVE IN MOUTH, THEN SWALLOW Prov:MARISSA PRUETT 12/30/24 Ibuprofen (Ibuprofen) 800 Mg Tab, 800 MG PO TID PRN for 5 Days, #20 TAB Prov:MARISSA PRUETT DO 12/30/24 Ferrous Sulfate (FERROUS SULFATE) 325 Mg Tb, 325 MG PO TID for 30 Days, #90 TAB Prov:MARISSA PRUETT 12/30/24 Cephalexin Monohydrate (Cephalexin) 500 Mg Cap, 500 MG PO QID for 7 Days, #28 CAP Prov:MARISSA PRUETT 12/30/24 Docusate Sodium (Colace) 100 Mg Cap, 1 CAP PO BID PRN, #60 CAP 2 Refills Prov:MANJU MAYS CN 07/12/23 Ibuprofen Micronized (MOTRIN TABLET) 600 Mg Tb, 600 MG PO Q6HP PRN for 30 Days, #120 TAB Prov:MANJU MAYS 07/12/23 Reported Medications Vit W/ Ferrous Fumara ( One Daily) Daily Tab, 1 TAB PO DAILY, #90 TAB 3 Refills 02/06/18 Information Source: Patient, Emergency Med Personnel Mode of Arrival: EMS Severity: Moderate Timing: Hours (Started at 1:00 a.m. this afternoon) Duration: Since onset Prehospital treatment: 12 Lead EKG, Tile Layer, IVF Location: The patient is having some lower abdominal cramping Associated signs and symptoms No associated vomiting but the patient is having nausea and the bleeding Past Medical History PAST MEDICAL HISTORY: Denies Surgical History: Denies all surgeries CT TECHNICIAN History: No Pertinent CT TECHNICIAN History Family History Family History: No family hx of Cancer, No family hx of DM, No family hx of Heart lexx Social History Smoker: Non-Smoker Alcohol: Denies ETOH Use Drugs: Denies Drug Use Lives In: Home Constitutional: reports: weakness; denies: chills, diaphoresis, fatigue, fever, malaise, sweats, others EENTM: denies: blurred vision, double vision, ear bleeding, ear discharge, ear drainage, ear pain, ear ringing, eye pain, eye redness, hearing loss, mouth pain, mouth swelling, nasal discharge, nose bleeding, nose congestion, nose pain, photophobia, tearing, throat pain, throat swelling, voice changes, others Respiratory: denies: cough, hemoptysis, orthopnea, SOB at rest, shortness of breath, SOB with excertion, stridor, wheezing, others Cardiovascular: denies: chest pain, dizzy spells, diaphoresis, Dyspnea on exertion, edema, irregular heart beat, left arm pain, lightheadedness, palpitations, PND, syncope, others Gastrointestinal: reports: nausea; denies: abdomen distended, abdominal pain, blood streaked bowels, constipated, diarrhea, dysphagia, difficulty swallowing, hematemesis, melena, poor appetite, poor fluid intake, rectal bleeding, rectal pain, vomiting, others Genitourinary: reports: abnormal vagina bleeding, incontinence; denies: burning, dyspareunia, dysuria, flank pain, frequency, hematuria, pain, , vagina discharge, urgency, others Neurological: denies: dizziness, fainting, headache, left sided numbness, left sided weakness, numbness, paresthesia, pre-existing deficit, right sided numbness, right sided weakness, seizure, speech problems, tingling, tremors, weakness, others Musculoskeletal: denies: back pain, gout, joint pain, joint swelling, muscle pain, muscle stiffness, neck pain, others Integumetry: denies: bruises, change in color, change in hair/nails, dryness, laceration, lesions, lumps, rash, wounds, others Allergic/Immunocompromised: denies: Difficulty Healing, Frequent Infections, Hives, Itching, others Hematologic/Lymphatic: denies: anemia, blood clots, easy bleeding, easy bruising, swollen glands, others Endocrine: denies: excessive hunger, excessive sweating, excessive thirst, excessive urination, flushing, intolerance to cold, intolerance to heat, unexplained weight gain, unexplained weight loss, others Psychiatric: denies: anxiety, bipolar disorder, depression, hopeless, panic disorder, schizophrenia, sleepless, suicidal, others Physical Exam General Appearance: Moderate Distress HEENT: Pale Conjuntivae (L), Pale Conjuntivae (R), Pharynx Normal, TMs Normal Neck: Full Range of Motion, Non-Tender, Normal, Normal Inspection Respiratory: Chest Non-Tender, Lungs Clear, No Accessory Muscle Use, No Respir atory Distress, Normal Breath Sounds Cardiovascular: No Edema, No JVD, No Murmur, No Gallop, Normal Peripheral Pulses, Regular Rate/Rhythm Breast Exam: Deferred Gastrointestinal: No Organomegaly, No Pulsatile Mass, Normal Bowel Sounds, Soft, Suprapubic, Tenderness Genitalia: Deferred Pelvic: Deferred Rectal: Deferred Extremities: No calf tenderness, Normal capillary refill, Normal inspection, Normal range of motion, Non-tender, No pedal edema Musculoskeletal : Apperance: Normal Neurologic: automobile technician II-XII nml as Tested, Motor Weakness, Normal Affect, Normal Mood, No Sensory Deficits Cerebellar Function: Normal Reflexes: Normal Skin: Dry, Pallor, Warm Lymphatic: No Adenopathy Was a procedure done? Was a procedure done?: No Differential Dx Considerations may include: Abnormal vaginal bleeding, severe anemia, retained products of conception X-Ray, Labs, Meds, VS Vital Signs Date Time Temp Pulse Resp B/P (MAP) Pulse Ox O2 Delivery O2 Flow Rate FiO2 12/30/24 19:30 85 10 100 Room Air* 0 21 12/30/24 19:30 98.5 85 10 107/60 (76) 100 98.5 12/30/24 19:00 94 13 100/54 (69) 100 12/30/24 18:30 90 13 100/61 (74) 100 12/30/24 18:00 111 16 113/75 (88) 99 12/30/24 17:30 86 16 128/93 (105) 100 12/30/24 17:00 72 17 110/77 (88) 100 12/30/24 16:30 85 13 119/84 (96) 98 12/30/24 16:00 99 13 114/84 (94) 96 12/30/24 15:50 93 21 96 Room Air* 0 21 12/30/24 15:50 98.2 93 21 114/84 (94) 96 98.2 12/30/24 15:40 98.5 90 18 124/99 97 98.5 Lab Test 12/30/24 16:34 Range/Units White Blood Count 8.2 4.4-10.8 10^3/uL Red Blood Count 3.48 L 4.0-5.20 10^6/uL Hemoglobin 10.1 L 12.2-16.2 g/dL Hematocrit 31.4 L 36.0-46.0 % Mean Corpuscular Volume 90.4 80.0-100.0 fL Mean Corpuscular Hemoglobin 29.0 28.0-32.0 pg Mean Corpuscular Hemoglobin Concent 32.1 32.0-36.0 g/dL Red Cell Distribution Width 14.6 H 11.8-14.3 % Platelet Count 314 140-450 10^3/uL Mean Platelet Volume 8.2 6.9-10.8 fL Neutrophils (%) (Auto) 78.0 37.0-80.0 % Lymphocytes (%) (Auto) 15.8 10.0-50.0 % Monocytes (%) (Auto) 5.2 0.0-12.0 % Eosinophils (%) (Auto) 0.3 0.0-7.0 % Basophils (%) (Auto) 0.7 0.0-2.0 % Neutrophils # (Auto) 6.4 1.6-8.6 10 ^3/uL Lymphocytes # (Auto) 1.3 0.4-5.4 10 ^3/uL Monocytes # (Auto) 0.4 0-1.3 10 ^3/uL Eosinophils # (Auto) 0 0-0.8 10 ^3/uL Basophils # (Auto) 0.1 0-0.2 10 ^3/uL Nucleated Red Blood Cells 0.0 % Prothrombin Time 11.5 9.3-11.8 sec Prothrombin Time INR 1.09 0.9-1.15 Activated Partial Thromboplast Time 22.7 L 24.5-34.5 SEC Fibrinogen 193 177-375 mg/dL Sodium Level 145 136-145 mmol/L Potassium Level 3.5 3.5-5.1 mmol/L Chloride Level 112 H 98-107 mmol/L Carbon Dioxide Level 20 20-31 mmol/L Anion Gap 13 5-15 Blood Urea Nitrogen 9 9-23 mg/dL Creatinine 0.84 0.550-1.02 mg/dL Glomerular Filtration Rate Calc 97 >90 mL/min BUN/Creatinine Ratio 10.7 10.0-20.0 Serum Glucose 145 H 74-106 mg/dL Calcium Level 8.0 L 8.7-10.4 mg/dL Total Bilirubin 0.5 0.2-1.0 mg/dL Aspartate Amino Transferase (AST) 18 13-40 U/L Alanine Aminotransferase (ALT) 26 7-40 U/L Alkaline Phosphatase 145 H 46-116 U/L Total Protein 5.7 5.7-8.2 g/dL Albumin 3.4 3.2-4.8 g/dL Beta HCG, Quantitative 3.2 1.5-4.2 mIU/mL Current Medications Medications (Trade) Dose Ordered Sig/Sabas Route Start Time Stop Time Status Last Admin Sodium Chloride 500 ml @ 500 mls/hr Q1H ONCE IV 12/30/24 18:15 12/30/24 19:14 DC 12/30/24 18:15 Oxytocin 1,000 ml @ 150 mls/hr Q6H40M ONCE IV 12/30/24 18:15 12/31/24 00:54 12/30/24 18:54 Tranexamic Acid 1000 mg/Sodium Chloride 110 ml @ 300 mls/hr ONCE ONCE IV 12/30/24 18:15 12/30/24 18:36 DC 12/30/24 19:19 IV Hep-Lock was established The CBC shows a hemoglobin of 10.1 and hematocrit of 31.4 The patient is still actively bleeding. The chemistry panel is within normal limits. The quantitative hCG is pending We did speak with Dr. Pruett and a stat ultrasound of the pelvis has been ordered We ordered TMX The patient also had lactic ringer with Pitocin to run at 150 cc/hour We did typed and screen the patient and the patient is being given 1 unit of packed red blood cells. The pelvic ultrasound shows: IMPRESSION: Thickened endometrium with fluid and hypervascular material which may represent retained debris versus products of conception. Correlate with beta HCG levels and close follow-up ultrasound. The patient will be admitted at this time Dr. Pruett is also consulting on this patient. Images Reviewed?: Images reviewed and evaluated by me Time of 1ST Reevaluation: 18:45 Reevaluation 1ST: Unchanged Patient Education/Counseling: Diagnosis, Treatment, Prognosis Family Education/Counseling: No Family Present SEPSIS Sepsis Screen Date sepsis recognized/suspect: Dec 30, 2024 Time Sepsis recognized/suspect: 1549 Recent Procedure: No On Antibiotic Therapy: No Respiratory Rate >20: No Heart Rate >90: Yes Temp<36 C (96.8 F) or >38.3 C: No SBP <90 or MAP <65 mmHG: No New Acute Mental Status Change: No Is the patient on CPAP, BIPAP,: No Physician Orders Type And Screen (12/30/24 16:23) Heplock Iv (12/30/24 18:05) Tile Layer (12/30/24 18:05) Blood Pressure (12/30/24 18:05) Pulse Oximetry (12/30/24 18:05) Pelvic (12/30/24 18:08) Lact. Ringers/Oxytocin 20units (Oxytocin (12/30/24 18:15) Obtain Consent For: (12/30/24 18:08) Administer Blood Products UD (12/30/24 18:08) Vital Signs Date Time Temp Pulse Resp B/P (MAP) Pulse Ox O2 Delivery O2 Flow Rate FiO2 12/30/24 19:30 85 10 100 Room Air* 0 21 12/30/24 19:30 98.5 85 10 107/60 (76) 100 98.5 12/30/24 19:00 94 13 100/54 (69) 100 12/30/24 18:30 90 13 100/61 (74) 100 12/30/24 18:00 111 16 113/75 (88) 99 12/30/24 17:30 86 16 128/93 (105) 100 12/30/24 17:00 72 17 110/77 (88) 100 12/30/24 16:30 85 13 119/84 (96) 98 12/30/24 16:00 99 13 114/84 (94) 96 12/30/24 15:50 93 21 96 Room Air* 0 21 12/30/24 15:50 98.2 93 21 114/84 (94) 96 98.2 12/30/24 15:40 98.5 90 18 124/99 97 98.5 Laboratory Tests Test 12/30/24 16:34 White Blood Count 8.2 10^3/uL (4.4-10.8) Medications Medications Dose Ordered Sig/Sabas Route Start Time Stop Time Status Last Admin Dose Admin Oxytocin 1,000 ml @ 150 mls/hr Q6H40M ONCE IV 12/30/24 18:15 12/31/24 00:54 12/30/24 18:54 Sodium Chloride 500 ml @ 500 mls/hr Q1H ONCE IV 12/30/24 18:15 12/30/24 19:14 DC 12/30/24 18:15 Tranexamic Acid 1000 mg/Sodium Chloride 110 ml @ 300 mls/hr ONCE ONCE IV 12/30/24 18:15 12/30/24 18:36 DC 12/30/24 19:19 Departure 1 Departure Time of Disposition: 20:11 Impression: Primary Impression: Abnormal vaginal bleeding Additional Impressions: Retained products of conception Severe anemia Disposition: ADMITTED INPATIENT Admit to: Med Surg Condition: Guarded e-Prescriptions Ondansetron Odt 4MG Tab (ZOFRAN PO) 4 Mg Tb 4 MG PO Q4HP PRN for 6 Days, #30 TAB ODT TAB-DISSOLVE IN MOUTH, THEN SWALLOW Prov: MARISSA PRUETT DO 12/30/24 Ibuprofen (Ibuprofen) 800 Mg Tab 800 MG PO TID PRN for 5 Days, #20 TAB Prov: MARISSA PRUETT DO 12/30/24 Ferrous Sulfate (FERROUS SULFATE) 325 Mg Tb 325 MG PO TID for 30 Days, #90 TAB Prov: MARISSA PRUETT DO 12/30/24 Cephalexin Monohydrate (Cephalexin) 500 Mg Cap 500 MG PO QID for 7 Days, #28 CAP Prov: MARISSA PRUETT DO 12/30/24 Critical Care Note Critical Care Time?: Yes (45 min-critical care time only) Stability Stability form required: Yes Unstable for transfer: Telemetry monitoring (Telemetry monitoring required), ED Physician Assesment (Clinical assesment) Heart Score Heart Score: Heart Score Response (Comments) Value History N/A 0 EKG N/A 0 Age N/A 0 Risk Factors N/A 0 Troponin N/A 0 Total 0 BRISA SIMTH MD Dec 30, 2024 18:29
[2024-12-30 18:35] LABS: INR 1.09 (0.9-1.15); Partial Thromboplastin Time 22.7 SEC (24.5-34.5); Prothrombin Time 11.5 sec (9.3-11.8)
[2024-12-30] MEDS: LACT. RINGERS/OXYTOCIN 20UNITS 1,000 ML IV ONE ×2 (18:54→21:15)
[2024-12-30] MEDS: TRANEXAMIC ACID 1,000 MG in SODIUM CHL 0.9% 100 ML IV ONE ×2 (19:19→22:56)
--- NOTE | 2024-12-30 19:23 | DVH ---
INDICATION: bleeding TECHNIQUE: Multiple real-time grayscale transabdominal sonographic images along with color and duplex Doppler of the uterus and ovaries were obtained. COMPARISON: None FINDINGS: The uterus measures 10.1 x 6.8 x 8 cm. The endometrial stripe measures 3.1 cm. Right ovary measures 3.5 x 1.9 x 2.8 cm with normal Doppler color flow Left ovary measures 3.6 x 1.9 x 2.6 cm with normal Doppler color flow IMPRESSION: Thickened endometrium with fluid and hypervascular material which may represent retained debris versus products of conception. Correlate with beta HCG levels and close follow-up ultrasound.
[2024-12-30 19:30] VITALS: PULSE 85; RESP 10; O2SAT 100
[2024-12-30] MEDS ORDERED: ZOFR4T PO (20:08)
[2024-12-30] MEDS ORDERED: CEPH500C PO (20:08)
[2024-12-30] MEDS ORDERED: FER325T PO (20:08)
[2024-12-30] MEDS ORDERED: IBUP-1456 PO (20:08)
[2024-12-30] MEDS ORDERED: ONDANSETRON HCL 4 MG/2 ML VIAL IV PRN ×2 (20:15→21:15)
[2024-12-30] MEDS ORDERED: METOCLOPRAMIDE HCL 5MG/ml INJ 2ml VIAL IV PRN (20:15)
[2024-12-30] MEDS ORDERED: HYDROmorphone HCL 2 MG/ML VL/or syr IV PRN (20:15)
[2024-12-30] MEDS ORDERED: fentaNYL CITRATE 100 MCG/2 ML VL ONE (20:21)
[2024-12-30] MEDS ORDERED: MIDAZOLAM HCL 2MG/2ML 2ml VIAL (1mg/ml) ONE (20:21)
[2024-12-30] MEDS ORDERED: PROPOFOL 10 MG/ML 20 ML IV ONE (20:22)
[2024-12-30] MEDS ORDERED: METOCLOPRAMIDE HCL 5MG/ml INJ 2ml VIAL ONE (20:22)
[2024-12-30] MEDS ORDERED: LIDOCAINE 2% (LOCAL ANESTH.) PF 5ml SDV ONE (20:22)
[2024-12-30] MEDS ORDERED: ONDANSETRON HCL 4 MG/2 ML VIAL ONE (20:22)
[2024-12-30] MEDS ORDERED: SODIUM CHLORIDE LOCK 10 ML ONE (20:30)
--- NOTE | 2024-12-30 20:36 | DVHHP ---
ADMIT DATE: 12/30/2024 CHIEF COMPLAINT: Heavy vaginal bleeding. HISTORY OF PRESENT ILLNESS: The patient is a 29-year-old female status post vaginal delivery approximately 2 weeks ago, came in with nausea, vomiting, abdominal cramping, and heavy vaginal bleeding. The patient was hypotensive, tachycardic. Ultrasound reveals retained POC, mostly in the cervix and the retained POC measures 3.3 cm. Uterus is 16 weeks size. She started bleeding today. She reports having had uneventful delivery. PAST MEDICAL HISTORY: None. PAST SURGICAL HISTORY: None. SOCIAL HISTORY: None. REVIEW OF SYSTEMS: Consistent with HPI. ALLERGIES: No known drug allergies. PHYSICAL EXAMINATION: VITAL SIGNS: Blood pressure 90/60, pulse of 110. HEENT: Pale conjunctivae. CARDIOVASCULAR: Tachy rate. LUNGS: Clear to auscultation. BREASTS: Symmetrical. No masses. ABDOMEN: Soft, nontender. PELVIC: Cervix open. Uterus 16 weeks size. Bulky cervix consistent with retained products in the cervix. Adnexa nonpalpable. EXTREMITIES: No clubbing, cyanosis or edema. IMPRESSION: * Retained POC. * Status post recent vaginal delivery. * Anemia. PLAN: D and C suction curettage. Informed consent obtained. Risks and complications of surgery including infection, perforation of uterus, risks of anesthesia discussed with the patient. Options reviewed. All questions answered. The patient fully understands. She wishes to proceed with planned procedure. DO DAYTON Mccormack TID: [id number] RECEIPT: [id number]
[2024-12-30 20:55] VITALS: PULSE 110; RESP 13; O2SAT 99
--- NOTE | 2024-12-30 20:59 | POSTOP ---
Post-Operative Note Post-Operative Note Preop Diagnosis retained poc svere anemia due to vag bleeding s/p recent vag del Postop Diagnosis: same Operation performed d and c,suction currettage Specimen poc Anesthesia: Mac Anesthesiologist: larisa Blood Loss(fluid mgmt) 200ml Surgeon Marissa Pruett Implant na Complications & Mgmt none Date 12/30/24 Time 20:57 Visit Coding OBGYN Date of Service: Dec 30, 2024 Billing Provider: MARISSA PRUETT DO LICENSED DISPENSING OPTICIAN Common Visit Codes: [id number] INP/OBS CARE (HIGH) LICENSED DISPENSING OPTICIAN Procedure Codes: 10277-X&C, DIAG OR THERAPEUTIC, 59812-JY OF INCOMP AB,ANY TRIMESTER MARISSA PRUETT DO Dec 30, 2024 20:59
--- NOTE | 2024-12-30 20:59 | DVHPN2 ---
Visit Coding OBGYN Date of Service: Dec 30, 2024 Billing Provider: MARISSA JUDGE DO CHUTE PULLER Common Visit Codes: [id number] INP/OBS CARE (HIGH) CHUTE PULLER Procedure Codes: 80764-P&C, DIAG OR THERAPEUTIC MARISSA JUDGE DO Dec 30, 2024 20:59
[2024-12-30] MEDS ORDERED: MORPHINE SULFATE INJ 2 MG/ml SYRG IV PRN (21:15)
[2024-12-30] MEDS ORDERED: IBUPROFEN 800 MG TAB PO PRN (21:15)
[2024-12-30] MEDS ORDERED: ACETAMINOPHEN 325 MG TAB PO PRN (21:15)
[2024-12-30] MEDS ORDERED: HYDROcodone-ACET 10/325MG TAB PO PRN (21:15)
[2024-12-30] MEDS ORDERED: NITROGLYCERIN 0.4 MG SL TAB SL PRN (21:15)
--- NOTE | 2024-12-30 21:33 | DVHOP ---
DATE OF SURGERY: 12/30/2024 PREOPERATIVE DIAGNOSES: * Retained POC. * Severe anemia due to vaginal bleeding blood loss. * Status post recent vaginal delivery. POSTOPERATIVE DIAGNOSES: * Retained POC. * Severe anemia due to vaginal bleeding blood loss. * Status post recent vaginal delivery. PROCEDURE: D and C suction curettage. SURGEON: Dr. Halley Pruett. ANESTHESIA: MAC. ANESTHESIOLOGIST: Samy Mccabe CRNA. ESTIMATED BLOOD LOSS: 200 mL. FINDINGS: Cervix 1 cm. Uterus 11-week size. Approximately 3-4 cm POC obtained. PROCEDURE: The patient was taken to the operating room where she was placed under MAC anesthesia. She was then prepped and draped in the usual sterile manner in dorsal lithotomy position. The bladder was emptied using a straight catheter. Examination under anesthesia revealed above findings. A weighted speculum was placed in the vagina. The uterus sounded to 10 cm. Cervix was already dilated. Curetting of the endometrial cavity was done. Some POC was obtained. Then, suction curettage was done. Estimated blood loss was noted to be 200 mL. The patient tolerated the procedure well. She was taken to the recovery room in stable condition. The patient will be receiving 2 units of PRBC, to which she agreed. DO TRAV Mccormack TID: [id number] RECEIPT: [id number]
[2024-12-30] MEDS: TRANEXAMIC ACID 10 ML ONE (22:52)
[2024-12-30] MEDS: ceFAZolin 1GM/50ML 50 ML IV SCH (23:29)
[2024-12-31 01:00] VITALS: BP 125/79; PULSE 85; RESP 17; TEMP 98.8; O2SAT 98
[2024-12-31 05:00] VITALS: BP 120/88; PULSE 97; RESP 16; TEMP 98.8; O2SAT 98
[2024-12-31 06:55] LABS: Hematocrit 26.5 % (36.0-46.0); Hemoglobin 8.9 g/dL (12.2-16.2); Mean Corpuscular Hemoglobin 28.5 pg (28.0-32.0); Mean Corpuscular Volume 84.5 fL (80.0-100.0); Nucleated Red Blood Cells % 0.1 %
[2024-12-31 08:00] VITALS: PULSE 80
--- NOTE | 2024-12-31 12:39 | DVHPN2 ---
Chief Complaints Patient reports: No new complaints, Feels better Nursing reports: No new complaints Objective Vitals Vital Signs Date Time Temp Pulse Resp B/P (MAP) Pulse Ox O2 Delivery O2 Flow Rate FiO2 12/31/24 08:00 Room Air* 0 21 12/31/24 05:00 98.8 97 16 120/88 (99) 98 98.8 Medications Current Medications Medications (Trade) Dose Ordered Sig/Sabas Route PRN Reason Start Time Stop Time Status Last Admin Acetaminophen (Tylenol Tablet) 1,000 mg Q6HPRN PRN PO TEMP GREATER THAN 100.4 12/30/24 21:15 Acetaminophen/ Hydrocodone Bitart ([place] 10/325MG Tab) 1 tab Q6HPRN PRN PO SEVERE PAIN (7-10 PAIN SCALE) 12/30/24 21:15 Cefazolin Sodium 50 ml @ 100 mls/hr Q8HR IV 12/30/24 23:30 12/31/24 05:42 Ibuprofen (Motrin Tablet) 800 mg Q8HPRN PRN PO MILD PAIN (1-3 PAIN SCALE) 12/30/24 21:15 Morphine Sulfate 2 mg Q30M PRN IV FOR CHEST PAIN 12/30/24 21:15 Nitroglycerin (Ntrostat Sublingual) 0.4 mg Q5MINP PRN SL FOR CHEST PAIN 12/30/24 21:15 Ondansetron HCl (Zofran) 4 mg Q4HPRN PRN IV NAUSEA / VOMITING 12/30/24 21:15 Others ve-scant bleeding ext -no cce or calf tenderness abd soft,nt Studies Laboratory Tests 12/31/24 05:53 12/30/24 16:34 Test 12/30/24 16:34 Range/Units Serum Glucose 145 H 74-106 mg/dL Ass/Plan Assessment s/p d and c,suction anemia rec 2 uprbc Plan dc home fu 1wk Visit Coding OBGYN Date of Service: Dec 31, 2024 Billing Provider: MARISSA JUDGE DO CODING TECH Common Visit Codes: [id number] INP/OBS CARE (HIGH) CODING TECH Procedure Codes: 91986-L&C, DIAG OR THERAPEUTIC MARISSA JUDGE DO Dec 31, 2024 12:39
--- NOTE | 2024-12-31 12:43 | DVHDS2 ---
Physician Discharge Progress N Final Diagnosis: s/p d and c,suction for retained poc Operations or Procedures: Operations or Procedures d and c,suction currettage Condition on Discharge: Good Disposition: Home Discharge Instructions: Diet: Regular Activity: Light activity Medications: zofran,motrin Follow Up Care: Specialist: 1w Discharge Statement: "Patient was advised to return to the ER or call 911 if any headaches, dizziness, shortness of breath, chest pain, abdominal pain, bleeding, fevers, or worsening of medical condition. Patient was counseled about treatment plan, medications, possible side effects, patientverbalized understanding. All questions were answered to the best of my ability. This discharge took greater then 30 minutes in planning, reviewing documentation, counseling the patient, and discussing with other team members." Visit Coding OBGYN Date of Service: Dec 31, 2024 Billing Provider: MARISSA JUDGE DO SENIOR RADIATION THERAPIST Common Visit Codes: [id number] INP/OBS CARE(HIGH), 81517-ZWB/OBS DISCH DAY >30MIN SENIOR RADIATION THERAPIST Procedure Codes: 95720-K&C, DIAG OR THERAPEUTIC MARISSA JUDGE DO Dec 31, 2024 12:43
--- NOTE | 2024-12-31 12:57 | DVHINCON2 ---
Date Seen: Dec 31, [address] JUDGE Family History: Patient reports no known family medical history. Allergies: Coded Allergies: NO KNOWN ALLERGIES (Unverified , 05/18/14) Home Meds Active Scripts Ondansetron Odt 4MG Tab (ZOFRAN PO) 4 Mg Tb, 4 MG PO Q4HP PRN for 6 Days, #30 TAB ODT TAB-DISSOLVE IN MOUTH, THEN SWALLOW Prov:MARISSA JUDGE DO 12/30/24 Ibuprofen (Ibuprofen) 800 Mg Tab, 800 MG PO TID PRN for 5 Days, #20 TAB Prov:MARISSA JUDGE DO 12/30/24 Ferrous Sulfate (FERROUS SULFATE) 325 Mg Tb, 325 MG PO TID for 30 Days, #90 TAB Prov:MARISSA JUDGE DO 12/30/24 Cephalexin Monohydrate (Cephalexin) 500 Mg Cap, 500 MG PO QID for 7 Days, #28 CAP Prov:MARISSA JUDGE DO 12/30/24 Current Medications Current Medications Medications (Trade) Dose Ordered Sig/Sabas Route PRN Reason Start Time Stop Time Status Last Admin Ondansetron HCl (Zofran) 4 mg ONCE PRN IV NAUSEA / VOMITING 12/30/24 20:15 12/30/24 20:19 DC Ephedrine Sulfate (ePHEDrine SULFATE) 10 mg Q10M PRN IV SBP LESS THAN 90 12/30/24 20:15 12/30/24 20:56 DC Metoclopramide HCl (Reglan Injection) 10 mg ONCE PRN IV NAUSEA / VOMITING 12/30/24 20:15 12/30/24 20:19 DC Hydromorphone HCl (Dilaudid Injection) 0.5 mg Q10M PRN IV SEVERE PAIN (7-10 PAIN SCALE) 12/30/24 20:15 12/30/24 20:56 DC Nitroglycerin (Ntrostat Sublingual) 0.4 mg Q5MINP PRN SL FOR CHEST PAIN 12/30/24 21:15 Morphine Sulfate 2 mg Q30M PRN IV FOR CHEST PAIN 12/30/24 21:15 Ondansetron HCl (Zofran) 4 mg Q4HPRN PRN IV NAUSEA / VOMITING 12/30/24 21:15 Cefazolin Sodium 50 ml @ 100 mls/hr Q8HR IV 12/30/24 23:30 12/31/24 05:42 Ibuprofen (Motrin Tablet) 800 mg Q8HPRN PRN PO MILD PAIN (1-3 PAIN SCALE) 12/30/24 21:15 Acetaminophen (Tylenol Tablet) 1,000 mg Q6HPRN PRN PO TEMP GREATER THAN 100.4 12/30/24 21:15 Acetaminophen/ Hydrocodone Bitart ([place] 10/325MG Tab) 1 tab Q6HPRN PRN PO SEVERE PAIN (7-10 PAIN SCALE) 12/30/24 21:15 Vital Signs Vital Signs Date Time Temp Pulse Resp B/P (MAP) Pulse Ox O2 Delivery O2 Flow Rate FiO2 12/31/24 08:00 Room Air* 0 21 12/31/24 05:00 98.8 97 16 120/88 (99) 98 98.8 Labs/Diagnostic Data Labs Test 12/31/24 05:53 12/30/24 16:34 Range/Units White Blood Count 6.2 4.4-10.8 10^3/uL Red Blood Count 3.13 L 4.0-5.20 10^6/uL Hemoglobin 8.9 L 12.2-16.2 g/dL Hematocrit 26.5 #L 36.0-46.0 % Mean Corpuscular Volume 84.5 # 80.0-100.0 fL Mean Corpuscular Hemoglobin 28.5 28.0-32.0 pg Mean Corpuscular Hemoglobin Concent 33.7 32.0-36.0 g/dL Red Cell Distribution Width 19.5 H 11.8-14.3 % Platelet Count 229 140-450 10^3/uL Mean Platelet Volume 8.4 6.9-10.8 fL Neutrophils (%) (Auto) 58.9 37.0-80.0 % Lymphocytes (%) (Auto) 34.2 10.0-50.0 % Monocytes (%) (Auto) 6.2 0.0-12.0 % Eosinophils (%) (Auto) 0.4 0.0-7.0 % Basophils (%) (Auto) 0.3 0.0-2.0 % Neutrophils # (Auto) 3.6 1.6-8.6 10 ^3/uL Lymphocytes # (Auto) 2.1 0.4-5.4 10 ^3/uL Monocytes # (Auto) 0.4 0-1.3 10 ^3/uL Eosinophils # (Auto) 0 0-0.8 10 ^3/uL Basophils # (Auto) 0 0-0.2 10 ^3/uL Nucleated Red Blood Cells 0.1 % Prothrombin Time 11.5 9.3-11.8 sec Prothrombin Time INR 1.09 0.9-1.15 Activated Partial Thromboplast Time 22.7 L 24.5-34.5 SEC Fibrinogen 193 177-375 mg/dL Sodium Level 145 136-145 mmol/L Potassium Level 3.5 3.5-5.1 mmol/L Chloride Level 112 H 98-107 mmol/L Carbon Dioxide Level 20 20-31 mmol/L Anion Gap 13 5-15 Blood Urea Nitrogen 9 9-23 mg/dL Creatinine 0.84 0.550-1.02 mg/dL Glomerular Filtration Rate Calc 97 >90 mL/min BUN/Creatinine Ratio 10.7 10.0-20.0 Serum Glucose 145 H 74-106 mg/dL Calcium Level 8.0 L 8.7-10.4 mg/dL Total Bilirubin 0.5 0.2-1.0 mg/dL Aspartate Amino Transferase (AST) 18 13-40 U/L Alanine Aminotransferase (ALT) 26 7-40 U/L Alkaline Phosphatase 145 H 46-116 U/L Total Protein 5.7 5.7-8.2 g/dL Albumin 3.4 3.2-4.8 g/dL Beta HCG, Quantitative 3.2 1.5-4.2 mIU/mL Assessment SEE DICTATED NOTE Plan discussed with: Patient Date of Service: Dec 31, 2024 Billing Provider: SLIM PINTO MD Common Visit Codes: [id number] INP/OBS CARE (HIGH) SLIM PINTO MD Dec 31, 2024 12:57
--- NOTE | 2024-12-31 13:15 | DVHINCON2 ---
INTERNAL MEDICINE CONSULT HISTORY OF PRESENT ILLNESS: The patient is a 29-year-old lady who is admitted after she had nausea, vomiting, abdominal cramping, and heavy vaginal bleeding. The patient at this time denies any significant pain. No chest pain, no shortness of breath, no dizziness or syncope. REVIEW OF SYSTEMS: Review of rest of the systems otherwise currently negative. PAST MEDICAL HISTORY: No significant illness in the past. MEDICATIONS: She takes no meds on a regular basis. ALLERGIES: No known drug allergies. SOCIAL HISTORY: Denies smoking or alcohol. FAMILY HISTORY: Negative. PHYSICAL EXAMINATION: GENERAL: The patient is awake, alert. VITAL SIGNS: Temperature of 98.8, pulse 97 per minute, blood pressure 118/78. SHEENT: Reveals pallor. NECK: There is no JVD. No pedal edema. LUNGS: Equal bilaterally. No added sounds. CARDIOVASCULAR SYSTEMS: S1 and S2 is regular without murmurs. ABDOMEN: Soft. Bowel sounds are present. NEUROLOGIC: Nonfocal. MUSCULOSKELETAL: Normal. ASSESSMENT AND PLAN: * Anemia for which the patient has been told to take iron supplementation. * Status post D and C for retained products of conception. MD ORA Stevens/AGNIESZKA TID: [id number] RECEIPT: [id number]
== END 2024-12-31 15:36 | disposition home or self-care (01) | DRG 769 ==
LOC: EDBD 15:37 → ER 15:37 → OVERFLOW 21:02 → TELE-CENTR 23:20
PROVIDERS: ADMIT Obstetrics & Gynecology; ATTEND Obstetrics & Gynecology
PROC: 30233N1 Transfusion of Nonautologous Red Blood Cells into Peripheral Vein, Percutaneous Approach (ICD-10-PCS; 2024-12-30)
PROC: 10D17ZZ Extraction of Products of Conception, Retained, Via Natural or Artificial Opening (ICD-10-PCS; principal; 2024-12-30 20:30)
DX: O72.2 Delayed and secondary postpartum hemorrhage (principal); D50.0 Iron deficiency anemia secondary to blood loss (chronic); N93.9 Abnormal uterine and vaginal bleeding, unspecified
CPT/HCPCS: 36415; 76856; 80053; 84702; 85025; 85384; 85610; 85730; 86850; 86900; 86901; 86920; 96365; G0378; J2003; J2250; J2405; J2590; J2704